=== PATIENT | male | born 1980 | race Caucasian/White ===

== ENCOUNTER 2017-01-27 20:07 | Inpatient (IN) | payer MEDICARE, MEDICAID ==
[~2017-01-27] VITALS: Ht 180.3 cm; Wt 119.3 kg
--- NOTE | 2017-01-27 20:07 | NUR ---
PT BIB RA C/O CP 5/10 DULL ACHY AND SLURRED SPEECH SINCE 1529 TODAY. CP NON-PROVOKED AND NO RADIATION. UPON NEURO ASSESSMENT, NOTED WEAK SEMICONDUCTOR ENGINEER STRENGTH ON L ARM AND SLIGHTLY WEAKER LLE. REPORTS MILD SENSORY LOSS ON L SIDE. RESP EVEN UNLABORED. SKIN WARM NONDIAPHORETIC. REPORTS HX OF CVA 2 MONTHS AGO WHICH LEFT HIM UNABLE TO AMBULATE. DENIES SLURRED SPEECH OR LUE RESIDUAL DEFICITS. IN ER BED 10. NOTIFIED IMMEDIATELY OF PT'S CONDITION.
--- NOTE | 2017-01-27 20:11 | NUR ---
CODE STROKE CALLED
--- NOTE | 2017-01-27 20:13 | NUR ---
CALLED [facility]'S TELESTROKE HOTLINE, SPOKE WITH RENETTA, PRESENTED PT, AWAITING CALL BACK FROM (NEUROLOGIST)
[2017-01-27] MEDS ORDERED: IOHEXOL-350 100 ML VIAL IV ONE (20:19)
[2017-01-27] MEDS ORDERED: IV NS 0.9% 250 ML IV ONE (20:19)
[2017-01-27 20:46] LABS: BASOPHILS % (AUTO) 0.4 % (0.0-2.0); EOSINOPHILS # (AUTO) 0.2 /CMM (0.0-0.7); EOSINOPHILS % (AUTO) 1.9 % (0.0-6.0); HEMATOCRIT 38 % (39-51); HEMOGLOBIN 12.6 g/dL (13.5-17.5); LYMPHOCYTES # (AUTO) 3.4 /CMM (0.8-4.8); LYMPHOCYTES % (AUTO) 32.8 % (20.0-44.0); MEAN CORPUSCULAR HEMOGLOBIN 28 PG (26.0-33.0); MEAN CORPUSCULAR HGB CONC 33 g/dl (31.0-36.0); MEAN CORPUSCULAR VOLUME 84 fL (80-96); MONOCYTES # (AUTO) 0.8 /CMM (0.1-1.30); MONOCYTES % (AUTO) 8.1 % (2.0-12.0); NEUTROPHILS % (AUTO) 56.8 % (43.0-81.0); PLATELET COUNT (AUTO) 272 /CMM (150-450); RDW COEFFICIENT OF VARIATION 16.7 (11.5-15.0); RED BLOOD CELL COUNT(AUTO) 4.52 MIL/uL (4.5-6.0); WHITE BLOOD COUNT (AUTO) 10.4 K/uL (4.3-11.0)
[2017-01-27 20:58] LABS: INR 0.89 (0.87-1.13); PROTHROMBIN TIME 9.2 SECS (9.5-12.7)
[2017-01-27 21:00] LABS: ALANINE AMINOTRANSFERASE 25 U/L (12-78); ALBUMIN 2.9 g/dL (3.4-5.0); ALKALINE PHOSPHATASE 86 U/L (46-116); ASPARTATE AMINOTRANSFERASE 12 U/L (15-37); BILIRUBIN,DIRECT 0.1 mg/dL (0.0-0.2); BILIRUBIN,TOTAL 0.2 mg/dL (0.2-1.0); CALCIUM, SERUM 8.9 mg/dL (8.5-10.1); CARBON DIOXIDE 23 mmol/L (21-32); CHLORIDE 97 mmol/L (98-107); POTASSIUM 3.8 mmol/L (3.5-5.1); SODIUM SERUM 130 mmol/L (136-145); UREA NITROGEN, BLOOD 16 mg/dL (7-18)
[2017-01-27] MEDS ORDERED: ASPIRIN 325 MG TABLET PO ONE (21:00)
--- NOTE | 2017-01-27 21:00 | NUR ---
DR YVONNE LIZARRAGA, ADMITTING MD, AT BEDSIDE
[2017-01-27 21:02] LABS: GLUCOSE 478 mg/dL (74-106); TROPONIN I < 0.017 ng/mL (0.00-0.056)
[2017-01-27] MEDS ORDERED: HYDROCODONE/APAP 5/325MG 1 EACH TABLET ONE (21:04)
[2017-01-27] MEDS ORDERED: ASPIRIN EC 81 MG TABLET.DR PO ONE (21:04)
--- NOTE | 2017-01-27 21:17 | NUR ---
CALLED NURSING SUP. FOR TELE BED
[2017-01-27] MEDS ORDERED: IV NS 0.9% 1,000 ML BAG IV ONE (21:30)
[2017-01-27] MEDS ORDERED: INSULIN REGULAR, HUMAN 100 UNIT/ML 10 ML VIAL SQ ONE (21:30)
[2017-01-27] MEDS ORDERED: HYDROCODONE/APAP 5/325MG 1 EACH TABLET PO ONE (21:30)
[2017-01-27] MEDS ORDERED: INSULIN REGULAR, HUMAN 100 UNIT/ML 10 ML VIAL ONE (21:31)
--- NOTE | 2017-01-27 21:37 | NUR ---
WITNESS AND VERIFIED WITH JONEL RAMOS INSULIN 6UNITS SQ
--- NOTE | 2017-01-27 21:49 | NUR ---
REPORT GIVEN TO KRISTIN REMY FOR ADMISSION
[2017-01-27 21:50] LABS: THYROID STIMULATING HORMONE 3.453 uIU/mL (0.358-3.74)
[2017-01-27 21:59] LABS: APPEARANCE,URINE Clear (CLEAR); BILIRUBIN,URINE Negative (NEGATIVE); BLOOD, URINE Moderate Ery/uL (NEGATIVE); COLOR,URINE Yellow (YELLOW); KETONES,URINE Trace (NEGATIVE); LEUKOCYTE ESTERASE ,URINE Negative (NEGATIVE); NITRITE, URINE Negative (NEGATIVE); PROTEIN,URINE Negative (NEGATIVE); UGLUCOSE 500 MG/DL mg/dL (NEGATIVE); UROBILINOGEN,URINE 0.2 EU/dL (0.2)
[2017-01-27] MEDS ORDERED: BLOOD SUGAR DIAGNOSTIC 1 EACH STRIP IN SCH (22:00)
[2017-01-27 22:07] LABS: BACTERIA,URINE Rare /HPF (None Seen); SQUAMOUS EPITHELIAL CELL,UR Few /HPF (None Seen); WBC,URINE 0-2 /HPF (0-3)
[2017-01-27 22:30] VITALS: BP 116/80
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
--- NOTE | 2017-01-27 22:36 | NUR ---
PT TRANSPORTED TO [facility] IN STABLE CONDITION VIA ACLS PROTOCOL. ECHO WAS COMPLETED PRIOR TO TRANSFER.
[2017-01-27] MEDS: BLOOD SUGAR DIAGNOSTIC 1 EACH STRIP IN SCH (23:24)
[2017-01-27] MEDS: ENOXAPARIN SODIUM 40 MG/0.4 ML DISP.SYRIN SQ SCH (23:29)
[2017-01-27] MEDS: ATORVASTATIN 40 MG TABLET PO SCH (23:30)
[2017-01-28] VITALS: BP 103/61
[2017-01-28] MEDS: INSULIN REGULAR, HUMAN 100 UNIT/ML 3 ML VIAL SQ PRN ×4 (00:07→17:48)
[2017-01-28] MEDS ORDERED: DEXTROSE 50%-WATER 50 ML DISP.SYRIN IV PRN (00:30)
[2017-01-28 02:29] LABS: INR 0.89 (0.87-1.13); PROTHROMBIN TIME 9.4 SECS (9.5-12.7)
[2017-01-28 04:00] VITALS: BP 115/73
[2017-01-28] MEDS: BLOOD SUGAR DIAGNOSTIC 1 EACH STRIP IN SCH ×4 (06:31→17:48)
--- NOTE | 2017-01-28 07:00 | NUR ---
RN NOTES PT RECEIVED ON BED IN STABLE CONDITION. A/O X3 EXPRESSIVE APHASIA WITH SOME SLURRED SPEECH NOTED. ON TELE MONITOR SR IN 80S. RESPIRATIONS EVEN AND UNLABORED ON 2L NASAL CANNULA. USES URINAL. LEFT SIDED WEAKNESS NOTED. R HAND 18 G IV SITE CLEAN, DRY, AND INTACT. NPO THIS AM FOR SWALLOW EVAL. SIDE RAILS UP X3, CALL LIGHT WITHIN REACH WILL CONTINUE TO MONITOR. .
[2017-01-28 07:37] LABS: BASOPHILS # (AUTO) 0.1 /CMM (0.0-0.2); BASOPHILS % (AUTO) 0.5 % (0.0-2.0); EOSINOPHILS # (AUTO) 0.2 /CMM (0.0-0.7); EOSINOPHILS % (AUTO) 2.3 % (0.0-6.0); HEMATOCRIT 38 % (39-51); LYMPHOCYTES % (AUTO) 31.9 % (20.0-44.0); MEAN CORPUSCULAR HEMOGLOBIN 28 PG (26.0-33.0); MEAN CORPUSCULAR HGB CONC 34 g/dl (31.0-36.0); MEAN CORPUSCULAR VOLUME 83 fL (80-96); MONOCYTES # (AUTO) 0.6 /CMM (0.1-1.30); MONOCYTES % (AUTO) 6.4 % (2.0-12.0); NEUTROPHILS # (AUTO) 5.5 /CMM (1.8-8.9); NEUTROPHILS % (AUTO) 58.9 % (43.0-81.0); PLATELET COUNT (AUTO) 252 /CMM (150-450); RDW COEFFICIENT OF VARIATION 18.3 (11.5-15.0); RED BLOOD CELL COUNT(AUTO) 4.58 MIL/uL (4.5-6.0); WHITE BLOOD COUNT (AUTO) 9.3 K/uL (4.3-11.0)
[2017-01-28 07:48] LABS: CALCIUM, SERUM 8.2 mg/dL (8.5-10.1); CREATININE 0.6 mg/dL (0.6-1.3); POTASSIUM 3.8 mmol/L (3.5-5.1)
[2017-01-28 07:59] LABS: INR 0.89 (0.87-1.13); PROTHROMBIN TIME 9.5 SECS (9.5-12.7)
[2017-01-28 08:00] VITALS: BP 114/77
[2017-01-28] MEDS: ASPIRIN EC 325 MG TABLET.DR PO SCH (08:03)
--- NOTE | 2017-01-28 11:03 | NUR ---
neighborhood worker met with patient at bedside. Patient was oriented to place, self, and situation. Patient's mood and affect were anxious. Patient was cooperative and willing to answer the social workers questions. Per patient, he is currently homeless and was recently at [facility] in [place] in the behavioral health unit for one day and than felt chest pains and was transferred to the [facility]. Per patient, he would like to go back to [facility] in [place] to there behavioral health unit or he wants to go to a short term rehab facility (SNF). Per patient, he recently came from [facility] and has been in [place] for a couple of days. Patient stated that he is single and has no family in [place]. Patient stated that he receives SSI ($807/month). Patient denied drug and alcohol abuse. Patient denied suicidal and homicidal ideations. Patient became more anxious toward the end of the assessment and stated, "I don't know, I am really confused." neighborhood worker informed patient that she was available if needed.
[2017-01-28 12:00] VITALS: BP_SYST 123; BP_SYST 126; BP_DIAS 39; BP_DIAS 81
--- NOTE | 2017-01-28 12:00 | NUR ---
RN NOTES PT REFUSED SCDS. EDUCATION PROVIDED REGARDING IMPORTANCE OF KEEPING THEM ON BUT PT STILL REFUSED.
[2017-01-28] MEDS ORDERED: MORPHINE SULFATE INJ 4 MG/ML DISP.SYRIN IV ONE (13:00)
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
[2017-01-28 16:00] VITALS: BP 120/72
--- NOTE | 2017-01-28 18:00 | NUR ---
RN NOTES PT IN STABLE CONDITION RESTING COMFORTABLY IN BED. RESPIRATIONS EVEN AND UNLABORED 2L NASAL CANNULA. NO NEUROLOGICAL CHANGES NOTED THROUGHOUT THIS SHIFT. DVT PUMPS AT BEDSIDE, PT REFUSED. SIDE RAILS UP X3, CALL LIGHT WITHIN EASY REACH, BED LOCKED AND IN LOWEST POSITION WITH BED ALARM ON FOR PT SAFETY.
[2017-01-28] MEDS: MORPHINE SULFATE INJ 4 MG/ML DISP.SYRIN IV PRN ×2 (18:12→22:12)
[2017-01-28 20:00] VITALS: BP 132/80
--- NOTE | 2017-01-28 20:00 | NUR ---
RN NOTES: RECEIVED PATIENT AWAKE IN BED WITH NO RESPIRATORY DISTRESS OR SHORTNESS OF BREATH. BREATHING EVEN AND UNLABORED. COMPLAINT OF LEFT SHOULDER PAIN. ALERT AND ORIENTED. VERBALIZES NEEDS. NEEDS ATTENDED. KEPT CLEAN AND DRY.
[2017-01-28] MEDS: ATORVASTATIN 40 MG TABLET PO SCH (22:04)
[2017-01-28] MEDS: ENOXAPARIN SODIUM 40 MG/0.4 ML DISP.SYRIN SQ SCH (22:06)
[2017-01-29] VITALS: BP_SYST 111; BP_SYST 132; BP_DIAS 80
[2017-01-29] MEDS: BLOOD SUGAR DIAGNOSTIC 1 EACH STRIP IN SCH ×4 (00:01→17:06)
[2017-01-29] MEDS: INSULIN REGULAR, HUMAN 100 UNIT/ML 3 ML VIAL SQ PRN ×5 (00:06→17:08)
[2017-01-29] MEDS: MORPHINE SULFATE INJ 4 MG/ML DISP.SYRIN IV PRN ×6 (02:32→16:28)
[2017-01-29 04:00] VITALS: BP_SYST 116; BP_SYST 99; BP_DIAS 65; BP_DIAS 71
[2017-01-29 07:13] LABS: BASOPHILS # (AUTO) 0.1 /CMM (0.0-0.2); BASOPHILS % (AUTO) 0.7 % (0.0-2.0); EOSINOPHILS # (AUTO) 0.2 /CMM (0.0-0.7); EOSINOPHILS % (AUTO) 1.6 % (0.0-6.0); HEMATOCRIT 40 % (39-51); HEMOGLOBIN 13.6 g/dL (13.5-17.5); LYMPHOCYTES # (AUTO) 3.1 /CMM (0.8-4.8); MEAN CORPUSCULAR HEMOGLOBIN 29 PG (26.0-33.0); MEAN CORPUSCULAR HGB CONC 34 g/dl (31.0-36.0); MEAN CORPUSCULAR VOLUME 84 fL (80-96); MONOCYTES # (AUTO) 0.6 /CMM (0.1-1.30); MONOCYTES % (AUTO) 6.4 % (2.0-12.0); NEUTROPHILS # (AUTO) 5.7 /CMM (1.8-8.9); NEUTROPHILS % (AUTO) 59.3 % (43.0-81.0); PLATELET COUNT (AUTO) 261 /CMM (150-450); RDW COEFFICIENT OF VARIATION 17.9 (11.5-15.0); RED BLOOD CELL COUNT(AUTO) 4.75 MIL/uL (4.5-6.0); WHITE BLOOD COUNT (AUTO) 9.6 K/uL (4.3-11.0)
--- NOTE | 2017-01-29 07:30 | NUR ---
RN NOTES RECEIVED PATIENT IN BED ALERT, AWAKE, ORIENTED X3 WITH BREATHING NORMAL, EVEN AND UNLABORED. NO SOB NOTED. ON 2L O2 VIA NC, SATURATING WELL. NO ACUTE DISTRESS NOTED. TELE MONITOR REVEALS SR, HR=84. IV R HAND IS PATENT AND INTACT, NO INFILTRATION NOTED. BOWELS SOUND PRESENT. PULSES PRESENT. SAFETY MEASURE OBSERVED. ALL NEEDS ATTENDED. CALL LIGHT WITH IN REACH. WILL CONT TO MONITOR.
--- NOTE | 2017-01-29 07:49 | NUR ---
RN CLOSING NOTES NO EPISODE OF DISTRESS, OBTUNDED. GTUBE PATENT WITH LARGE AMOUNT OF RESIDUAL. PATIENT;S BLOOD SUGAR AT 6AM LOW 52MG/DL. DEXTROSE ADMINISTERED. STILL WAITING FOR RESULTS. WOUND DRESSING CHANGED. NO NEW SKIN ISSUE. KEPT CLEAN AND DRY Addendum: 01/29/17 at 0757 by ANDIE VENTURA RN RN CLOSING NOTES FOR ANOTHER PATIENT: PLS SEE ANOTHER CLOSING NOTES
[2017-01-29 07:52] LABS: CALCIUM, SERUM 8.9 mg/dL (8.5-10.1); CREATININE 0.7 mg/dL (0.6-1.3); MAGNESIUM 1.5 mg/dL (1.8-2.4); POTASSIUM 3.8 mmol/L (3.5-5.1)
--- NOTE | 2017-01-29 07:57 | NUR ---
RN CLOSING NOTES. ALERT AND ORIENTED. WITH EPISODES OF RESTLESSNESS AND ANXIETY. COMPLAINED OF PAIN. MORPHINE ADMINISTERED EVERY FOUR HOURS, WITH RELIEF. NO EPISODE OF DISTRESS. BREATHING EVEN AND UNLABORED. KEPT CLEAN AND DRY. ENDORSED TO AM SHIFT FOR CONTINUITY OF CARE.
[2017-01-29 08:00] VITALS: BP 98/54
[2017-01-29] MEDS: ASPIRIN EC 325 MG TABLET.DR PO SCH (09:48)
[2017-01-29] MEDS: Magnesium 1GM/D5W 100ML PREMIX 100 ML IV SCH ×2 (10:27→12:09)
[2017-01-29 12:00] VITALS: BP_SYST 109; BP_SYST 116; BP_DIAS 71; BP_DIAS 73
--- NOTE | 2017-01-29 14:10 | NUR ---
Patient would like to be discharged to [facility] [place] [address] [facility] [address]. ([phone]) fabric worker leader spoke to Ca from [facility] who stated that they can take the patient back as long as he is medically cleared. Ca requested that Labs and a note that states, "Patient is medically cleared for discharge." should be faxed over to ([phone]) and intake should be called ([phone]) before patient can return. fabric worker leader will follow-up.
[2017-01-29 16:00] VITALS: BP 109/73
[2017-01-29] MEDS ORDERED: INSULIN DETEMIR 100 UNIT/ML CARTRIDGE SQ STA (16:19)
[2017-01-29] MEDS ORDERED: INSU100I19 SQ (16:23)
[2017-01-29] MEDS ORDERED: ASPI-869 PO (16:23)
[2017-01-29] MEDS ORDERED: ATOR40TA PO (16:23)
[2017-01-29] MEDS ORDERED: INSU100C10 SQ (16:23)
[2017-01-29] MEDS ORDERED: INSULIN REGULAR, HUMAN 100 UNIT/ML 3 ML VIAL SQ STA (16:33)
--- NOTE | 2017-01-29 17:37 | NUR ---
precast concrete ironworker faxed Labs and a note that states, "Patient is medically cleared for discharge to ([phone]) [facility] the intake department. precast concrete ironworker spoke to Tacho from intake ([phone]) who stated that patient is to medically compromised for their [place] locations and had faxed over the paperwork to their [place] location as that location has an ER department. Tacho stated that they are just waiting for a response from the [place] location. precast concrete ironworker informed Soon the charge nurse and provided Tacho with charge nurse Rafita's number for follow-up. precast concrete ironworker informed case management and notified them that patient is pending acceptance to [facility] in [place] [address] ([phone]).
--- NOTE | 2017-01-29 19:00 | NUR ---
RN NOTES PATIENT ENDORSED TO NEXT SHIFT IN STABLE CONDITION FOR CONTINUITY OF CARE. NO SIGNIFICANT CHANGES NOTED. KEPT CLEAN, DRY AND COMFORTABLE. ALL NEEDS ATTENDED. SAFETY MEASURE OBSERVED. CALL LIGHT WITH IN REACH. WILL CONT TO MONITOR.
[2017-01-29 20:00] VITALS: BP 123/70
[2017-01-29] MEDS: ENOXAPARIN SODIUM 40 MG/0.4 ML DISP.SYRIN SQ SCH (21:20)
[2017-01-29] MEDS: ATORVASTATIN 40 MG TABLET PO SCH (21:20)
--- NOTE | 2017-01-29 22:00 | NUR ---
CALLED [facility] FOR THE PT DISCHARGE ORDER . TALKED TO NURSE AMBIKA , GAVE THE IMPROVEMENT MANAGER (ROSIO) NUMBER [phone] TO TALK TO REGARDING THE DISCHARGE .
--- NOTE | 2017-01-29 22:15 | NUR ---
CALLED SAP SENIOR DEVELOPER ROSIO , VERBALIZED SHE CANNOT TALK RIGHT NOW COZ SHE IS DOING HUDDLE RIGHT NOW AND TO CALL HER LATER AGAIN . WILL CALL HER LATER .
--- NOTE | 2017-01-29 22:30 | NUR ---
CALLED BOOK CLEANER ROSIO AGAIN AND GAVE HER REPORT AND WANTS US TO FAX PT's TODAY's BMP REPORT THAN SHE WILL LET US KNOW IF SHE ACCEPT THE PATIENT OR NOT. PRIMARY NURSE ANDIE FAXED THE BMP . WILL F/O
--- NOTE | 2017-01-29 23:06 | NUR ---
ROSIO THE BLANKET INSPECTOR FROM [facility] CALLED TO INFORM OF ACCEPTANCE THE PT AND SAID THAT . WILL CALL [facility] FOR THE TRANSPORTATION. Addendum: 01/30/17 at 0005 by NINOSKA BURNETT RN PLS AVOID THIS NOTE AND SEE OTHER NOTE.
--- NOTE | 2017-01-29 23:06 | NUR ---
ROSIO THE CUSTOMER SUCCESS DIRECTOR FROM [facility] CALLED TO INFORM OF ACCEPTANCE THE PT AND SAID THAT THE PRIMARY NURSE (AMBIKA) WILL CALL WITH THE BED NUMBER . WILL CALL [facility] FOR THE TRANSPORTATION.
--- NOTE | 2017-01-29 23:10 | NUR ---
CALLED [facility] FOR THE TRANSPORTATION . TALKED TO GRETEL, VERBALIZED THAT THEY WILL BE HERE IN 30 MINS TO TRAVEL REGISTERED NURSE PACU .
--- NOTE | 2017-01-29 23:30 | NUR ---
CALLED BEVOR NURSE TO ASK FOR THE ROOM NUMBER WHERE PT IS GOING TO , ROOM NUMBER PROVIDED. PT IS GOING TO ROOM NO 602-A .
[2017-01-30] VITALS: BP 128/69
--- NOTE | 2017-01-30 00:29 | NUR ---
RN NOTES: [id number] RECEIVED PATIENT AWAKE STANDING ON THE DOORWAY ASKING FOR SANDWICH. ALERT AND ORIENTED, VERBALLY COMMUNICATE NEEDS. NOTED WITH MOOD SWINGS FROM VERY AGITATED TO VERY APOLOGETIC. NO RESPIRATORY DISTRESS OR SHORTNESS OF BREATH. BREATHING EVEN AND UNLABORED. NO COMPLAINT OF PAIN OR DISCOMFORT. 2014 PATIENT IS SCHEDULED FOR TRANSFER TO [facility]. CALLED HOSPITAL TO GIVE REPORT REGARDING PATIENT. CALLED WAS ANSWERED BY ONE OF THE NURSE AND SAID HE NEEDS TO REFER IT TO HIS BOATING SAFETY OFFICER THERE WAS NO NOTICE TO THEM OF THE ADMISSION. TOLD STAFF THAT ARRANGEMENTS HAS BEEN MADE FOR HIS TRANSFER UNDER THE CARE OF DR. VARGAS. HE ASKED FOR FREISTATT NUMBER AND WILL VERY FROM HIS BOATING SAFETY OFFICER. 2204 CALLED [facility] BOATING SAFETY OFFICER, AND GAVE REPORT REGARDING THE PATIENT. BOATING SAFETY OFFICER WAS ASKING FOR BMP RESULT AND NEEDS TO FAX IT TO THEM BEFORE SHE COULD ACCEPT THE PATIENT BECAUSE THE REPORT SHE HAS WAS THAT THE PATIENTS GLUCOSE IN BLOOD IS 500. GOT THE COPY OF THE BMP RESULT AND FAX TO THEM. VERIFIED IF FAXED WAS RECEIVED AFTER ABOUT 15 MINUTES. CHARGE NURSE NINOSKA ARRANGE FOR THE TRANSFER. PATIENT WAS SENT OUT VIA AMBULANCE ON A GURNEY ACCOMPANIED BY 2 WOODWORKING SHOP HAND @0000 IN STABLE CONDITION. VITAL SIGNS WITHIN NORMAL LEVEL
== END 2017-01-29 23:55 | DRG 638 ==
LOC: ER 20:11 → TELE1 21:34
DX: E11.65 Type 2 diabetes mellitus with hyperglycemia (principal); I69.854 Hemiplegia and hemiparesis following other cerebrovascular disease affecting left non-dominant side; I10 Essential (primary) hypertension; F43.10 Post-traumatic stress disorder, unspecified; E66.9 Obesity, unspecified; E78.5 Hyperlipidemia, unspecified; F31.9 Bipolar disorder, unspecified; Z87.11 Personal history of peptic ulcer disease; F41.9 Anxiety disorder, unspecified; Z68.36 Body mass index [BMI] 36.0-36.9, adult
CPT/HCPCS: 36415; 70450-TC; 70496-TC; 70498-TC; 71010-TC; 80048-TC; 80061-TC; 80076-TC; 80305; 81000-TC; 82962-TC; 83735-TC; 83880; 84100-TC; 84443-TC; 84484-TC; 85025-TC; 85652-TC; 85730-TC; 87081-TC; 92507-TC; 92521; 92526; 92611-TC; 93307-TC; 93880-TC; 94799-TC; 97001-TC; 97110-TC; 97116-TC; 97530-TC; A4606; J1650; J1815; J2270; J3475; J7030; J7050; Q9967; Z7610

== ENCOUNTER 2018-08-14 19:57 | Inpatient (IN) | payer MEDICARE, MEDICAID ==
[~2018-08-14] VITALS: Ht 205.7 cm; Wt 125.4 kg
[~2018-08-14 19:57] MED LIST: ASPI-869 PO; ATOR40TA PO; INSU100C10 SQ; INSU100I19 SQ
--- NOTE | 2018-08-14 20:09 | NUR ---
PT BIBRA FROM [facility], FOR CP SHARP GIVEN NITRO AND ASA MEDICAL IMAGING TECHNICIAN. PT AAXO4, RESPIARTIONS EVEN AND UNLABORED, NO SOB, PT ON MONITOR, NAD NOTED, VSS, PENDING ER PROVIDER CLARK
[2018-08-14] MEDS ORDERED: ONDANSETRON HCL/PF 4 MG/2 ML VIAL ONE ×2 (20:37→21:38)
[2018-08-14] MEDS ORDERED: HYDROCODONE/APAP 5/325MG 1 EACH TABLET ONE (20:37)
[2018-08-14 20:43] LABS: CALCIUM, SERUM 9.5 mg/dL (8.5-10.1); CARBON DIOXIDE 26 mmol/L (21-32); CHLORIDE 101 mmol/L (98-107); CREATININE 0.9 mg/dL (0.6-1.3); GLUCOSE 265 mg/dL (74-106); POTASSIUM 4.2 mmol/L (3.5-5.1); SODIUM SERUM 136 mmol/L (136-145); UREA NITROGEN, BLOOD 15 mg/dL (7-18)
[2018-08-14 20:49] LABS: ALANINE AMINOTRANSFERASE 47 U/L (12-78); ALBUMIN 3.5 g/dL (3.4-5.0); ALKALINE PHOSPHATASE 64 U/L (46-116); ASPARTATE AMINOTRANSFERASE 18 U/L (15-37); BILIRUBIN,DIRECT 0.1 mg/dL (0.0-0.2); BILIRUBIN,TOTAL 0.3 mg/dL (0.2-1.0); TOTAL PROTEIN, SERUM 6.6 g/dL (6.4-8.2)
[2018-08-14] MEDS ORDERED: HYDROCODONE/APAP 5/325MG 1 EACH TABLET PO ONE (21:00)
[2018-08-14] MEDS ORDERED: ONDANSETRON HCL/PF - ER 4 MG/2 ML VIAL IV ONE ×3 (21:00→22:00)
[2018-08-14 21:13] LABS: BASOPHILS # (AUTO) 0.1 /CMM (0.0-0.2); BASOPHILS % (AUTO) 0.5 % (0.0-2.0); HEMATOCRIT 41 % (39-51); HEMOGLOBIN 14.2 g/dL (13.5-17.5); LYMPHOCYTES # (AUTO) 2.6 /CMM (0.8-4.8); LYMPHOCYTES % (AUTO) 24.1 % (20.0-44.0); MEAN CORPUSCULAR HGB CONC 35 g/dl (31.0-36.0); MEAN CORPUSCULAR VOLUME 87 fL (80-96); MONOCYTES % (AUTO) 9.7 % (2.0-12.0); NEUTROPHILS # (AUTO) 6.8 /CMM (1.8-8.9); NEUTROPHILS % (AUTO) 63.7 % (43.0-81.0); PLATELET COUNT (AUTO) 183 /CMM (150-450); RED BLOOD CELL COUNT(AUTO) 4.66 MIL/uL (4.5-6.0); WHITE BLOOD COUNT (AUTO) 10.7 K/uL (4.3-11.0)
[2018-08-14] MEDS ORDERED: ATOR40TA PO (22:07)
[2018-08-14] MEDS ORDERED: DIVA500T2 PO (22:07)
[2018-08-14] MEDS ORDERED: QUET200T PO (22:07)
[2018-08-14] MEDS ORDERED: INSU100V11 SQ (22:07)
[2018-08-14] MEDS ORDERED: AMLO2.5T4 PO (22:07)
[2018-08-14] MEDS ORDERED: PANT20TA2 PO (22:07)
[2018-08-14] MEDS ORDERED: METF-440 PO (22:16)
--- NOTE | 2018-08-14 22:16 | NUR ---
REPORT GIVEN TO DEIRDRE REMY FOR SHAQ
[2018-08-14 22:22] VITALS: BP 126/73
--- NOTE | 2018-08-14 22:25 | NUR ---
REVIEW SCHEDULING COORDINATOR ADMITTING NOTES RECEIVED PT FROM ER VIA BJ, AWAKE ALERT ORIENTEDX4, COMPLAINING OF CHEST PAIN 10/10 RADIATING TO THE BACK AND LEFT ARM. BREATHING EVEN AND UNLABORED, VITALS WNL. IV ACCESS ON THE L UA #22G. TELE MONITOR IN PLACE, SR IN THE 70S. SKIN INTACT, SMALL SCAB ON THE RIGHT SIDE OF THE HEAD. BED IN LOWEST LOCKED POSITION, CALL LIGHT WITHIN REACH AT ALL TIMES, WILL CONTINUE TO MONITOR
--- NOTE | 2018-08-14 22:37 | NUR ---
TRANSFERRED PT TO MS/TELE FLOOR VIA ACLS PROTOCOL
--- NOTE | 2018-08-14 23:30 | NUR ---
PAGE DR. VIVIAN GERARD FOR PAIN MEDICATION, PER MOUSTAPHA, PT IS A DRUG SEEKER, STAT ECG NORMAL NO INDICATION OF HEART PROBLEMS, PAST CAT SCAN REVEALED NO INDICATION OF PAST STOKE OR NEW STROKE. DO NOT GIVE OPIATES.
[2018-08-15] MEDS ORDERED: ACETAMINOPHEN 325 MG TABLET PO PRN
[2018-08-15] MEDS ORDERED: ENOXAPARIN SODIUM 40 MG/0.4 ML DISP.SYRIN SQ SCH
[2018-08-15] MEDS ORDERED: DEXTROSE 50%-WATER 50 ML DISP.SYRIN IV PRN
[2018-08-15] MEDS ORDERED: NAPROXEN 500 MG TABLET PO PRN
[2018-08-15] MEDS ORDERED: ONDANSETRON HCL/PF 4 MG/2 ML VIAL IVP PRN
[2018-08-15] MEDS ORDERED: Z GUARD REMEDY 2 OZ OINT TP PRN
[2018-08-15] MEDS ORDERED: ZOLPIDEM TARTRATE 5 MG TABLET PO PRN
[2018-08-15] MEDS ORDERED: KETOROLAC TROMETHAMINE INJ 30 MG/ML VIAL IV ONE
[2018-08-15] MEDS: BLOOD SUGAR DIAGNOSTIC 1 EACH STRIP IN SCH ×3 (00:02→12:00)
[2018-08-15] MEDS: INSULIN REGULAR, HUMAN 100 UNIT/ML 3 ML VIAL SQ PRN ×2 (00:19→06:48)
[2018-08-15 04:00] VITALS: BP 113/70
--- NOTE | 2018-08-15 06:26 | NUR ---
FLEXOGRAPHIC PRESS OPERATOR CLOSING NOTE PT IN BED, SLEEPING, EASILY AROUSED TO TOUCH OR NAME CALL. BREATHING EVEN AND UNLABORED ON ROOM AIR, COMPLAINTS OF CHEST PAIN 02/18. IV ACCESS ON THE L UA #22G SL PATENT AND FLUSHING. TELE MONITOR IN PLACE, REMAINS SINUS RHYTHM IN THE 70S. BED IN LOWEST LOCKED POSITION, CALL LIGHT WITHIN REACH AT ALL TIMES, WILL ENDORSE TO DAY NURSE FOR SHAQ.
[2018-08-15] MEDS ORDERED: PANTOPRAZOLE 40 MG TABLET.DR PO SCH (07:30)
--- NOTE | 2018-08-15 07:53 | NUR ---
GLASS BLOWING INSTRUCTOR OPENING NOTES RECEIVED PT LAYING IN BED WITH HOB ELEVATED. PT IS A/O X4, AFEBRILE. RESPIRATIONS ARE EVEN AND UNLABORED, NOT IN ANY ACUTE DISTRESS NOTED. PT CONTINUES TO C/O LEFT-SIDED CHEST PAIN, PT IS ABLE TO GET UP AND OUT OF BED, AMBULATORY AND DENIES ANY SHORTNESS OF BREATH. OFFERED PT NITROGLYCERIN, PT STATED HE WANTS PAIN MEDICATIONS, "NO NITRO." PT HAS AN IV TO GITA, INTACT, NO INFILTRATION NOTED. DRESSING KEPT CLEAN AND DRY. SAFETY MEASURES ARE IN PLACE. INSTRUCTED PT TO USE CALL LIGHT WHEN ASSISTANCE IS NEEDED, CALL LIGHT IS LEFT WITHIN REACH. WILL MONITOR CLOSELY FOR CONTINUITY OF CARE.
[2018-08-15 08:00] VITALS: BP 134/86
[2018-08-15 08:05] LABS: ALBUMIN 3.2 g/dL (3.4-5.0); BILIRUBIN,TOTAL 0.3 mg/dL (0.2-1.0); CALCIUM, SERUM 8.3 mg/dL (8.5-10.1); CREATININE 0.8 mg/dL (0.6-1.3); MAGNESIUM 1.5 mg/dL (1.8-2.4); PHOSPHORUS 3.6 mg/dL (2.5-4.9); POTASSIUM 3.9 mmol/L (3.5-5.1)
[2018-08-15 08:06] LABS: BASOPHILS % (AUTO) 0.4 % (0.0-2.0); EOSINOPHILS % (AUTO) 2.2 % (0.0-6.0); HEMATOCRIT 40 % (39-51); HEMOGLOBIN 13.8 g/dL (13.5-17.5); LYMPHOCYTES # (AUTO) 3.1 /CMM (0.8-4.8); LYMPHOCYTES % (AUTO) 25.6 % (20.0-44.0); MEAN CORPUSCULAR HGB CONC 34 g/dl (31.0-36.0); MEAN CORPUSCULAR VOLUME 88 fL (80-96); MONOCYTES % (AUTO) 8.5 % (2.0-12.0); NEUTROPHILS # (AUTO) 7.6 /CMM (1.8-8.9); NEUTROPHILS % (AUTO) 63.3 % (43.0-81.0); PLATELET COUNT (AUTO) 174 /CMM (150-450); RED BLOOD CELL COUNT(AUTO) 4.58 MIL/uL (4.5-6.0)
[2018-08-15 08:33] VITALS: BP 134/86
[2018-08-15 08:43] LABS: THYROID STIMULATING HORMONE 3.467 uIU/mL (0.358-3.74)
[2018-08-15] MEDS ORDERED: NAPROXEN 250 MG TABLET PO PRN (09:00)
[2018-08-15] MEDS ORDERED: AMLODIPINE BESYLATE 2.5 MG TABLET PO SCH (09:00)
[2018-08-15] MEDS ORDERED: DIVALPROEX SODIUM 500 MG TABLET.DR PO SCH (09:00)
--- NOTE | 2018-08-15 10:00 | NUR ---
MS RN NOTES-- YVONNE, NURSE FROM [facility] CAME TO ATTEMPT TO INSERT IV FOR CTCA. PT REFUSED. PT STATED HE WANTS TO GO AMA. EXPLAINED THE RISKS ABOUT GOING AMA, PT STILL INSISTED TO LEAVE. NOTIFIED CHARGE NURSE MATTIE.
[2018-08-15] MEDS: Magnesium 1GM/D5W 100ML PREMIX 100 ML IV SCH ×2 (10:31→10:40)
--- NOTE | 2018-08-15 10:53 | NUR ---
Social service consult requested by case investigator Amelia Blank regarding pt. coming from [facility]. Pt. is a 38 year old male who was admitted to [facility] from [facility] for chest pain. SW met with pt bedside. Pt. is alert and oriented x 4. Initially pt. was cooperative with SW during the assessment, however as the assessment continued pt. became rude and aggressive shouting at . SW inquired with pt if he is homeless. Pt. states he has been homeless for 4 months. SW also inquired with pt. if he is still suicidal, since pt. came from [facility]. Pt. states he is. Pt. stated, "I am hearing voices that are telling him to do things and hurt myself." Pt. states he wants to go back to [facility] to get psychiatric help. Pt. receives social security disability per month but refused to say how much and informed SW that he doesn't have the money for this month. BREANNA offered pt. winter longterm resources, however pt. became upset and began yelling at saying, " I don't want it and leave me alone." BREANNA updated case investigator Amelia Blank and ZOE Moody regarding BREANNA's conversation with the pt. SW to fax referral packet to [facility] at . Addendum: 08/15/18 at 1103 by ELDA CARLOS Referral packet was faxed to [facility] at .
[2018-08-15] MEDS ORDERED: METOPROLOL TARTRATE 50 MG TABLET PO SCH (12:00)
--- NOTE | 2018-08-15 12:30 | NUR ---
MS RN NOTES-- NICK ORIENTING CYBER SECURITY ADMINISTRATOR ATTEMPTED TO INSERT PERIPHERAL IV FOR CTCA PT STATED HE AGREES TO DO THE TEST.
--- NOTE | 2018-08-15 13:00 | NUR ---
MS RN NOTES-- PT REFUSED BLOOD SUGAR CHECK. EXPLAINED THE IMPORTANCE OF CHECKING BLOOD SUGAR, PT STRONGLY REFUSED AND STATED "GET ME THE HELL OUT OF HERE." NO S/SX OF HYPO/HYERPGLYCEMIA ATTHIS TIME. WILL CONTINUE TO MONITOR CLOSELY.
--- NOTE | 2018-08-15 13:28 | NUR ---
MS RN AMA NOTE PT LEFT AMA. PT IS A/O X4, AFEBRILE. RESPIRATIONS ARE EVEN AND UNLABORED, NOT IN ANY ACUTE DISTRESS NOTED. PT WAS ADAMANT ABOUT LEAVING AMA. PT IS AMBULATORY WITH NO DIFFICULTIES. EXPLAINED THE RISKS OF GOING AMA, PT STILL STATED "I WANT TO LEAVE." EXIT CARE DONE WITH VERBAL AND WRITTEN AGREEMENT. PT SIGNED AMA AND HOMELESS WAIVER FORM. ALL BELONGINGS WERE ACCOUNTED FOR. IV SITE REMOVED, APPLIED PRESSURE AND TOLERATED WELL. ID BAND REMOVED.
[2018-08-15] MEDS ORDERED: ATORVASTATIN 40 MG TABLET PO SCH (22:00)
[2018-08-15] MEDS ORDERED: QUETIAPINE FUMARATE 100 MG TABLET PO SCH ×2 (22:00)
== END 2018-08-15 13:30 | disposition left against medical advice (07) | DRG 313 ==
LOC: ER 19:58 → TELE 22:04 → MED 08-15 12:05
PROVIDERS: ADMIT Nurse Practitioner Acute Care; ATTEND Nurse Practitioner Acute Care
DX: R07.89 Other chest pain (principal); F11.20 Opioid dependence, uncomplicated; E11.65 Type 2 diabetes mellitus with hyperglycemia; F43.10 Post-traumatic stress disorder, unspecified; I25.10 Atherosclerotic heart disease of native coronary artery without angina pectoris; Z86.73 Personal history of transient ischemic attack (TIA), and cerebral infarction without residual deficits; E78.5 Hyperlipidemia, unspecified; F41.9 Anxiety disorder, unspecified; F32.9 Major depressive disorder, single episode, unspecified; F17.210 Nicotine dependence, cigarettes, uncomplicated; E66.9 Obesity, unspecified; Z68.29 Body mass index [BMI] 29.0-29.9, adult; E11.22 Type 2 diabetes mellitus with diabetic chronic kidney disease; I12.9 Hypertensive chronic kidney disease with stage 1 through stage 4 chronic kidney disease, or unspecified chronic kidney disease; N18.9 Chronic kidney disease, unspecified; M13.0 Polyarthritis, unspecified; F20.9 Schizophrenia, unspecified
CPT/HCPCS: 36415; 71045-TC; 80048-TC; 80053-TC; 80061-TC; 80076-TC; 82962-TC; 83735-TC; 84100-TC; 84443-TC; 84484-TC; 85025-TC; 85378-TC; 85730-TC; 87081-TC; G0378; J1650; J1815; J1885; J2405; J3475